=== PATIENT | male | born 1960 | race African-American/Black ===

== ENCOUNTER 2024-04-24 13:07 | Emergency (ER) | payer MEDICAID, OTHER ==
[~2024-04-24] VITALS: Ht 177.8 cm; Wt 80.0 kg
[~2024-04-24 13:07] MED LIST: ALBU18HF2 IH; COR3 PO; FLUT1DIS3 INH; FURO20TA4 PO; FURO80TA87 MT; LOSA50TA41 PO; POTA-205 MT
[2024-04-24 13:10] VITALS: O2SAT 92
[2024-04-24 14:26] LABS: BASOPHILS % 0.5 % (0.0-2.0); EOSINOPHILS % 0.1 % (0.0-5.0); HEMATOCRIT. 34.9 % (42.0-52.0); HEMOGLOBIN. 11.3 g/dL (14.0-18.0); LYMPHOCYTES % 23.8 % (20.0-50.0); MEAN CORPUSCULAR HEMOGLOBIN 27.6 pg (28.0-32.0); MEAN CORPUSCULAR HGB CONC 32.4 g/dL (31.0-37.0); MEAN CORPUSCULAR VOLUME 85.2 fL (80.0-94.0); MEAN PLATELET VOLUME 8.8 fl (7.4-10.4); MONOCYTES % 5.1 % (2.0-8.0); NEUTROPHILS % 70.5 % (40.0-76.0); PLATELET 358 x1000/uL (130-400); RED CELL DISTRIBUTION WIDTH 17.8 % (11.6-14.6); WHITE BLOOD COUNT 10.2 x1000/uL (4.5-11.0)
[2024-04-24 14:31] LABS: CHLORIDE 109 mEq/L (98-107); POTASSIUM 3.4 mEq/L (3.5-5.1); SODIUM 142 mEq/L (136-145)
[2024-04-24 14:32] LABS: CARBON DIOXIDE 19 mEq/L (21-32)
[2024-04-24 14:33] LABS: CALCIUM 8.7 mg/dL (8.7-10.4)
[2024-04-24] MEDS: ONDANSETRON HCL 4MG/2ML INJ IV PRN (14:33)
[2024-04-24] MEDS: MORPHINE SULFATE 4 MG/ML INJ (FOR IV/IM USE) IV ONE (14:33)
[2024-04-24 14:36] LABS: INR 1.4; PROTHROMBIN TIME 14.9 sec (9.6-11.0)
[2024-04-24 14:37] LABS: CREATININE 1.2 mg/dL (0.6-1.3); GLUCOSE 101 mg/dL (70-105)
[2024-04-24 14:38] LABS: UREA NITROGEN BLOOD 20 mg/dL (9-23)
[2024-04-24 14:44] LABS: ETHANOL BLOOD < 10 mg/dL (<10)
[2024-04-24 15:22] LABS: BG BASE EXCESS -8.3 mmol/L (-2.0-2.0); BG CARBOXYHEMOGLOBIN 0.8 % (0.5-1.5); BG DEOXYHEMOGLOBIN 0.3 % (0.0-5.0); BG FRACTION INSPIRED OXYGEN 100; BG HCO3 ACT 16.8 mmol/L (22.0-26.0); BG METHEMOGLOBIN 0.1 % (0.0-1.5); BG OXYGEN SATURATION 99.7 % (92.0-98.5); BG OXYHEMOGLOBIN 98.8 % (94.0-97.0); BG PCO2 33.3 mmHg (35.0-45.0); BG PO2 256.5 mmHg (75.0-100.0); BG SAMPLE SITE LEFT BRACHIAL; BG VENT MODE MASK - NRB
[2024-04-24] MEDS: ASPIRIN 325MG EC TABLET PO ONE (15:22)
[2024-04-24] MEDS: LORAZEPAM 2MG/ML INJ IV ONE (15:22)
[2024-04-24 15:24] LABS: TROPONIN I HIGH SENSITIVITY 43 ng/L (3.0-53)
[2024-04-24 16:25] VITALS: BP 134/110; PULSE 114; RESP 24; TEMP 97.4
== END 2024-04-24 16:43 | disposition short-term general hospital (02) ==
LOC: ER 13:07
DX: R07.89 Other chest pain (principal); I10 Essential (primary) hypertension; Z86.73 Personal history of transient ischemic attack (TIA), and cerebral infarction without residual deficits
CPT/HCPCS: 80048; 80320; 85025; 85610; 84484; 36415; 71045; 70496; 70498; 70450; 82805; 82375; 93005; 96374; 96375; 99291; 36600; J2060; J2270; G0480